=== PATIENT | male | born 1980 | race Caucasian/White ===

== ENCOUNTER 2016-09-17 07:20 | Emergency (ER) | payer OTHER ==
[~2016-09-17] VITALS: Ht 188 cm; Wt 108.9 kg
[2016-09-17 07:32] VITALS: BP 158/81
[2016-09-17] MEDS ORDERED: LIDOCAINE 1% / SOD BICARB 8.4% 20 ML VIAL. IJ ONE (07:45)
--- NOTE | 2016-09-17 07:45 | PHYS DOC ---
Past Medical History Past Medical History: No Pertinent History Past Surgical History: Other Additional Past Surgical Histo: shoulder surgery Alcohol Use: None Drug Use: None Adult General Chief Complaint Chief Complaint: LACERATION/AVULSION [facility] HPI Patient is a 35 year old male presents emergency department stating that he was trying to get his trash together today when he finished double back it did not. He states that he thinks the piece of glass came out and cut him in the right forearm. He has an approximately 2 cm laceration noted. Patient states his tetanus immunization is up-to-date. There is no bleeding coming from the site. Peripheral pulses are 2+ cap refill brisk less than 2 seconds. Patient is right handed. Review of Systems Review of Systems Constitutional: Denies fever or chills [] Eyes: Denies change in visual acuity, redness, or eye pain [] HENT: Denies nasal congestion or sore throat [] Respiratory: Denies cough or shortness of breath [] Cardiovascular: No additional information not addressed in HPI [] GI: Denies abdominal pain, nausea, vomiting, bloody stools or diarrhea [] : Denies dysuria or hematuria [] Musculoskeletal: Denies back pain or joint pain [] Integument: Denies rash or skin lesions. C/o laceration to right forearm Neurologic: Denies headache, focal weakness or sensory changes [] Endocrine: Denies polyuria or polydipsia [] Current Medications Current Medications Current Medications Medications (Trade) Dose Ordered Sig/[facility] Start Time Stop Time Status Last Admin Dose Admin Lidocaine/Sodium Bicarbonate (Buffered Lidocaine 1%) 20 ml 1X ONCE 09/17/16 07:45 09/17/16 07:49 DC 09/17/16 08:00 20 ML Allergies Allergies Allergies Coded Allergies Type Severity Reaction Last Updated Verified No Known Drug Allergies 09/17/16 No Physical Exam Physical Exam Constitutional: Well developed, well nourished, no acute distress, non-toxic appearance. [] HENT: Normocephalic, atraumatic, bilateral external ears normal, oropharynx moist, no oral exudates, nose normal. [] Eyes: PERRLA, EOMI, conjunctiva normal, no discharge. [] Neck: Normal range of motion, no tenderness, supple, no stridor. [] Cardiovascular:Heart rate regular rhythm Lungs & Thorax: no respiratory noted Skin: Warm, dry, no erythema, no rash. Laceration noted to the right forearm with bleeding controlled, size 2 cm gapping. Back: No tenderness Extremities: No tenderness, no cyanosis, no clubbing, ROM intact, no edema. [] Neurologic: Alert and oriented X 3, normal motor function, normal sensory function, no focal deficits noted. [] Psychologic: Affect normal, judgement normal, mood normal. [] Current Patient Data Vital Signs Vital Signs Date Time Temp Pulse Resp B/P (MAP) Pulse Ox O2 Delivery O2 Flow Rate FiO2 09/17/16 07:32 98.1 85 16 99 Room Air 98.1 EKG EKG [] Radiology/Procedures Radiology/Procedures [] Course & Med Decision Making Course & Med Decision Making Pertinent Labs and Imaging studies reviewed. (See chart for details) 1% lidocaine buffered was injected into the laceration area approximately 6 mL. Site was cleaned with Betadine. Site was then irrigated with 100 mL of normal saline. Site was explored with no foreign bodies noted. 13 interrupted sutures of 4-0 nylon was placed. Patient was provided with discharge instructions to keep the area clean and dry. Clean the site twice daily with soap and water and apply antibiotic ointment to the area. Patient was instructed to have the sutures out in 7-10 days. He was provided signs and symptoms of infection. His also provided with signs and symptoms to return back to the emergency department. In stable condition. Patient agrees with discharge instructions treatment regimens and follow-up recommendations. [] Dragon Disclaimer Dragon Disclaimer This electronic medical record was generated, in whole or in part, using a voice recognition dictation system. Departure Departure Impression: Primary Impression: Laceration Disposition: 01 HOME, SELF-CARE Condition: STABLE Patient Instructions: Laceration Care, Adult, [id number], Sutured Wound Care , [id number] Additional Instructions: Keep the area clean and dry Clean the site with soap and water twice a day and apply antibiotic ointment to the area Watch for signs and symptom of infection: redness, warmth, tenderness or any yellow/greenish drainage. If this should happen followup with primary care provider immediately Tylenol or Ibuprofen for pain and discomfort Ice packs on 20 minutes and off 20 minutes several times day. Followup with primary care provider in 7-10 days for suture removal Return to emergency department as needed for signs and symptoms that become worse. Laceration/Wound Repair Laceration/Wound Repair : Wound Location: upper extremity Wound's Depth, Shape: superficial Wound Length (cm): 2 Wound Explored: clean Irrigated w/ Saline (ccs): 100 Betadine Prep?: Yes Anesthesia: 1% Lidocaine Volume Anesthetic (ccs): 6 Wound Debrided: minimal Suture Size/Type: 4:0 Number of Sutures: 13 FARIHA QUEEN APRN September 17, 2016 07:45
== END 2016-09-17 08:58 | disposition home or self-care (01) ==
LOC: ER 08:12
DX: S51.811A Laceration without foreign body of right forearm, initial encounter (principal); W25.XXXA Contact with sharp glass, initial encounter; Y93.89 Activity, other specified; Y92.89 Other specified places as the place of occurrence of the external cause; Y99.8 Other external cause status
CPT/HCPCS: 12001; 99283-25